=== PATIENT | male | born 1945 | race Two or more races ===

== ENCOUNTER 2024-12-19 12:20 | Inpatient (IN) | payer MEDICARE, MEDICAID, SELFPAY ==
[2024-12-19] VITALS (8 sets, daily range): BP systolic 81–155; BP diastolic 65–82; PULSE 51–63; RESP 15–98; TEMP 36.1–37.1; O2SAT 94–97; BMI 25.1
--- NOTE | 2024-12-19 12:52 | PC.NURSE ---
pt to ct
--- NOTE | 2024-12-19 12:54 | PC.NURSE ---
1222: DURING TRIAGE AND SON PASSING PHONE BACK AND FORTH, UNABLE TO GIVE STRAIGHT FORTH ANSWERS, COMPUTERIZED MILL RECORDER ASKED TO CLARIFY MULTIPLE TIMES. PT ABLE TO HOLD ID CARD W/BOTH HANDS AND MOVE BOTH HANDS
--- NOTE | 2024-12-19 12:58 | EKG_ITS ---
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
--- NOTE | 2024-12-19 12:58 | EDNOTE_ITS ---
Neuro Symptoms Deficit-RME/HPI General Chief Complaint: Hand/Wrist Problems Stated Complaint: B/L HAND NUMBNESS Time Seen by Provider: 12/19/24 12:59 Arrival date/time: 12/19/24 12:20 RME / HPI RME / HPI Narrative: 79 year old male with history of hypertension and previous cardiac procedure performed 5 years ago in [place] per , presents to the ED for evaluation of left upper arm pain and weakness beginning at 9:00 AM today. Patient reports he was sitting, bent forward, tying his grandchild's shoe when shortly after symptoms began. Initially beginning with pain to the left shoulder that radiates down the arm and followed by weakness. States he is unable to lift the arm above his shoulder. 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 Denies any history of similar sym ptoms. mentioned since the cardiac procedure performed 5 years ago patient no longer takes medication for hypertension. This mornign she measured his blood pressure shortly after symptoms began that read 170/92. She gave patient 1 Aspirin and Nebivolol/Hydrochlorithiazide. Related Data Home Medications ?Medication ?Instructions ?Recorded ?Confirmed amlodipine 5 mg-valsartan 160 1 tab PO QDAY 12/19/24 0 12/19/24 mg-hydrochlorothiazide 12.5 mg tablet aspirin 81 mg capsule 81 mg PO QDAY 12/19/2412/19 telmisartan 40 mg tablet (Micardis) 40 mg PO QDAY 12/0212/19/24 Allergies Allergy/AdvReac Type Severity Reaction Status Date / Time No Known Allergies Allergy Verified 12/19/24 12:29 Review of Systems Review of Systems Narrative Review of Systems: Gen: No fever, no chills, no weight loss EYES: No discharge, no visual changes, no pain HEENT: No ear pain, no congestion, no sore throat PULM: no shortness of breath, no cough, no congestion CV: No chest pain, no dyspnea on exertion, no palpitations, no chest tightness GI: No nausea, no vomiting, no diarrhea, no pain, no constipation : No frequency, no urgency,? no dysuria Musc/skel: No joint pain, no back pain, +left shoulder pain that extends down the arm Skin: No rash, no ecchymosis, no lesions Psyc: No hallucinations, no depression Heme/Lymph: No easy bleeding or bruising tendencies Neuro: +LUE weakness, no headache Past Medical History Social History SMOKING STATUS: Never smoker ED Exam Narrative Physical exam: GENERAL APPEARANCE: AxOx4, no obvious distress, nontoxic appearing HEENT: NC, AT. MMM. EOMI, clear conjunctiva, oropharynx clear. NECK: Supple without lymphadenopathy. No stiffness or restricted ROM. HEART: Normal rate and regular rhythm, normal S1/S1, no m/r/g LUNGS: CTAB, moving air well. No crackles or wheezes are heard. ABDOMEN: Soft, nontender, nondistended with good bowel sounds heard. BACK: No midline C/T/L spine pain or deformity, No CVAT, no obvious deformity. EXTREMITIES: Without cyanosis, clubbing or edema. MUSCULOSKELETAL: FROM of all major joints, no chest tenderness, reproducible pain over bilateral trapezius. NEUROLOGICAL: Alert and oriented. CN not formally tested but appear grossly intact. 0/10 strength at his triceps and extensors of the hand, unable to assess retail wireless associate strength of the left hand, no pronator drift. Skin: Warm and dry without any rash. Course Quality Measures Suspected type of Stroke: TIA Tenecteplase given: Reason(s) TPA not given: Outside the time window not given stroke Orders Category Date Time Status Bedside Blood Glucose NOW Care 12/19/24 12:58 Active Operations Research Director NOW Care 12/19/24 12:58 Active Continuous Pulse Oximetry NOW Care 12/19/24 12:58 Completed EKG (ED ONLY) *Do not use* NOW Care 12/19/24 12:58 Completed In and Out Catheter NEEDED Care 12/19/24 12:58 Active Insert IV NOW Care 12/19/24 12:58 Active MRI Screening NOW Care 12/19/24 13:33 Active NIH Stroke Scale now Care 12/19/24 12:58 Active NPO NOW Care 12/19/24 12:58 Active Neuro Check Q15MIN Care 12/19/24 12:58 Completed Nurse Swallow Screen x1 Care 12/19/24 12:58 Active Consult to Neurology / Tele-Neurology Routine Cons 12/19/24 12:[address] angio stroke protocol Stat Exams 12/19/24 12:[address] stroke protocol Stat Exams 12/19/24 12:58 Completed EKG (ED Only) Stat Exams 12/19/24 12:58 Draft MR cervical spine wo/w con Stat Exams 12/20/24 Completed MR stroke protocol Stat Exams 12/20/24 Completed CBC Stat Lab 12/19/24 12:48 Completed Comprehensive Metabolic Panel Stat Lab 12/19/24 12:48 Completed Magnesium Stat Lab 12/19/24 12:48 Completed Partial Thromboplastin Time Stat Lab 12/19/24 12:48 Completed Prothrombin Time with INR Stat Lab 12/19/24 12:48 Completed Troponin I Stat Lab 12/19/24 12:48 Completed Ondansetron Inj [Zofran Inj] Med 12/19/24 12:57 Active 4 mg IV Q4HR PRN Oxygen Delivery NOW RT 12/19/24 12:58 Completed Vital Signs Vital signs: Vital Signs Temperature 98.0 F 12/19/24 12:36 Pulse Rate 58 L 12/19/24 12:36 Respiratory Rate 17 12/19/24 12:36 Blood Pressure 155/82 H 12/19/24 12:36 Pulse Oximetry (%) 96 12/19/24 12:36 Pulse ox is 96% on room air which is adequate. Procedures -ED EKG Interpretation #1: Date of EK12/19/24 Time of EK:04 Rate: 53 Interpretation: Interpreted by me Additional EKG comment: Bradycardic sinus rhythm, HR 53 , normal axis, normal interval, no acute ST or T-wave changes, no STEMI. Neuro Symptoms / Deficit MDM Narrative MDM Narrative:: Jennifer Arevalo am scribing for and in the presence of Dr. Diane. 1800: Care signed out to Dr. Penn. Past medical, surgical, social and family history reviewed. Vitals and home medications reviewed. Results and treatment plan discussed. They will assume the care of the patient at this time and will follow the patient, pending admission. Patient data External records reviewed:: [facility] previous records Clinical information provided by:: patient and spouse ( adds to HPI) Social determinants that could affect healthcare access:: none Patient has the following chronic illnesses:: Hx of hypertension How is presenting disease/condition affected by chronic disease/condition?: exacerbated by Evaluation data The following diagnostics were reviewed and interpreted by me:: lab results, radiology exam(s) and EKG tracing(s) (see interpretation under the procedures tab) Lab and/or radiology exams considered but not ordered:: None Interpretation Summary: Ordering Physician: Davin Diane MD Date of Service: 12/19/24 Procedure(s): CT stroke protocol Accession Number(s): [id number] cc: Davin Diane MD; Eddy Treviño MD~ Examination: CT brain head without contrast. 2-D sagittal coronal reconstructions Date and time of exam:December 19, 2024 1300 hours INDICATIONS: Stroke alert, sudden onset right-sided body weakness today CTDI: vol (mGy):46.7 DLP: (mGycm):930 Technique: Multiple CT axial sections of the brain have been obtained, 5 mm slice thickness. Contrast has not been administered. 2-D sagittal, coronal reconstructions have been obtained Low dose protocols were performed. One or more of the following dose reduction techniques were used; automated exposure control, adjustment of the mA and/or KV according to patient size, use of iterative reconstruction technique. Findings: No significant ventricular enlargement. Intra-axial or extra-axial hemorrhage density is not seen. No mass effect or midline shift Basal cisterns are not remarkable. Fourth ventricle is midline. Cranial vault intact. Impression: Negative for acute hemorrhage, mass effect or midline shift Dictated By:Eddy Treviño MD Signed By:<Electronically signed by Eddy Treviño MD in [place]>12/19/24 1305 Ordering Physician: Davin Diane MD Date of Service: 12/19/24 Procedure(s): CT angio stroke protocol Accession Number(s): [id number] cc: Davin Diane MD; Eddy Treviño MD~ Examination: CTA carotids with intravenous contrast CTA brain, head with intravenous contrast. 2-D sagittal, coronal reconstructions. 3-D reconstructions. Exam date and time: December 19, 2024 1305 hours INDICATIONS: Stroke alert, onset right-sided body weakness today CTDI: vol (mGy) 20.5 DLP: (mGycm) 145 Technique: Multiple CTA axial brain, head carotid images post intravenous contrast injection 75 cc, [id number]. 2-D sagittal, coronal reconstructions. 3-D reconstructions, 3-D post processing including vascular maximum intensity projection images. Low dose protocols were performed. One or more of the following dose reduction techniques were used; automated exposure control, adjustment of the mA and/or KV according to patient size, use of iterative reconstruction technique. Findings: No significant common carotid carotid bifurcation or internal carotid artery stenoses Minimally dominant left vertebral artery with no critical stenoses No cerebral large vessel arterial occlusions, thrombus, dissection or cerebral aneurysm IMPRESSION: No significant neck arterial stenoses No cerebral large vessel arterial occlusions or thrombus Dictated By:Eddy Treviño MD Signed By:<Electronically signed by Eddy Treviño MD in [place]>12/19/24 1337 Medications / Prescriptions Medications or Prescriptions considered but not ordered:: None Medication administrations:: Medication Administration History Acetaminophen (Acetaminophen 325 Mg Tablet) 650 mg PO Q6H PRN PRN Reason: Pain (1-3) & Fever >100.4 Stop: 01/18/25 17:17 Aspirin (Aspirin Ec 81 Mg Tabec) 81 mg PO QDAY [facility] Stop: 01/19/25 08:59 Last Admin: 12/20/24 08:35 Dose: 81 mg Documented By: ANITA Atorvastatin Calcium (Atorvastatin Calcium 20 Mg Tablet) 80 mg PO HS WENCESLAO Stop: 01/18/25 20:59 Last Admin: 12/19/24 20:25 Dose: 80 mg Documented By: Heparin Sodium (Porcine) (Heparin Sod Inj 5000 Unit/Ml Vial) 5,000 unit SC Q12HR WENCESLAO Stop: 01/02/25 20:59 Last Admin: 12/20/24 08:36 Dose: 5,000 unit Documented By: ANITA Co-signed By: Admin: 12/19/24 20:25 Dose: 5,000 unit Documented By: Co-signed By: MICHAEL Ondansetron HCl (Ondansetron Inj 2 Mg/Ml Inj 2 Ml) 4 mg IV Q4HR PRN PRN Reason: NAUSEA OR VOMITING Stop: 01/18/25 12:56 Sennosides (Senna Tablet) 2 tab PO BID PRN; Protocol PRN Reason: CONSTIPATION Stop: 01/18/25 17:17 Discontinued Medications Heparin Sodium (Porcine) (Heparin Sod Inj 5000 Unit/Ml Vial) 5,000 unit SC Q8HR WENCESLAO Stop: 01/02/25 21:59 Lactated Ringer's (Lactated Ringers) 1,000 mls @ 70 mls/hr IV .[id number] WENCESLAO Stop: 12/20/24 09:18 Last Admin: 12/19/24 20:26 Dose: 70 mls/hr Documented By: Sodium Chloride (Ns) 1,000 mls @ 999 mls/hr IV .Q1H1M ONE Stop: 12/20/24 11:52 Last Admin: 12/20/24 09:45 Dose: 999 mls/hr Documented By: ANITA See above Consultations Consultation(s) initiated? (list below): Yes Consultation #1 (Physician, Specialty, Details): I spoke with teleneurologist. States at this time is not a stroke and not a tpa candidate. Consider MR of cervical spine. Time: 14:19 Diagnosis Neuro Differential Diagnosis: subarachnoid hemorrhage, peripheral neuropathy, cerebrovascular accident and transient cerebral ischemia Most likely diagnosis given after review of the tests above:: Cervical radiculopathy, Peripheral neuropathy Admission Indicated Admission indicated?: indicated Admission Request Was there a request for admission?: Yes Admission Attestation Admission request attestation: Discussed case with [] from Hospitalist service regarding admission. Discussed patients ED course, exam findings, labs, and radiology results. The Hospitalist [agrees,declines] to accept the patient for admission. Disposition Plan Disposition Plan: Admit Critical Care Time Critical Care Time Critical Care Time: Yes Total Critical Care Time (min.): 35 Attestation: The high probability of sudden, clinically significant deterioration in the patient?s condition required the highest level of my preparedness to intervene urgently. The services I provided to this patient were to treat and/or prevent clinically significant deterioration. Services included the following: chart data review, reviewing nursing notes and/or old charts, documentation time, clinical science consultant collaboration regarding findings and treatment options, medication orders and management, direct patient care, vital sign assessments and ordering, interpreting and reviewing diagnostic studies and lab tests. Aggregate critical care time includes only time during which I was engaged in work directly related to the patient?s care, as described above, whether at bedside or elsewhere in the Emergency Department. It did not include time spent performing other reported procedures or the services of residents, students, nurses or physician assistants. Discharge Plan Plan Patient Disposition: Admit Acute Care w/in Hospital Problem List Clinical Impression: Cervical radiculopathy, Peripheral neuropathy
[2024-12-19 13:13] LABS: Basophils % (Auto) 0 % (0-2.5); Eosinophils % (Auto) 0 % (0-10); Hematocrit 49.6 % (41.0-53.0); Hemoglobin 16.8 g/dL (13.5-16.0); Immature Granulocytes % (Auto) 0 % (0-0); Immature Granulocytes Auto 0.02 Thou/mm3 (0.00-0.00); Lymphocytes # (Auto) 1.5 Thou/mm3 (1.0-4.8); Lymphocytes % (Auto) 21 % (10-50); Mean Corpuscular HGB Conc 33.9 g/dl (31.0-37.0); Mean Corpuscular Hemoglobin 31.6 pg (25.0-35.0); Mean Corpuscular Volume 93 fL (80-100); Monocytes # (Auto) 0.4 Thou/mm3 (0.0-0.8); Monocytes % (Auto) 6 % (0-12); Neutrophils # (Auto) 5.1 Thou/mm3 (1.8-7.7); Neutrophils % (Auto) 72 % (37-80); Nucleated Red Blood Cell % 0 /100 WBC (0); Platelet Count 264 Thou/mm3 (140-440); RDW Standard Deviation 42.1 fL (35.1-43.9); Red Blood Count 5.32 Miln/mm3 (4.50-5.90); White Blood Count 7.1 Thou/mm3 (3.8-10.6)
[2024-12-19 13:28] LABS: Partial Thromboplastin Time 26.3 Seconds (22.0-36.0); Prothrombin Time 10.8 Seconds (9.0-12.2)
[2024-12-19 13:33] LABS: Alanine Aminotransferase 32 U/L (10-49); Albumin, Serum 4.5 gm/dL (3.4-4.8); Albumin/Globulin Ratio 1.6 (1.2-2.2); Alkaline Phosphatase 62 U/L (46-116); Anion Gap 6 (7-16); Aspartate Amino Transferase 24 U/L (0-34); BUN/Creatinine Ratio 11 Ratio (12-20); Bilirubin,Total 0.5 mg/dL (0.3-1.2); Blood Urea Nitrogen 10 mg/dL (9-23); Calcium 9.4 mg/dL (8.3-10.6); Calcium (Corrected) 9.4 mg/dL (8.5-10.1); Carbon Dioxide 29.9 mMol/L (20.0-31.0); Chloride 106 mMol/L (98-107); Creatinine (Component) 0.9 mg/dL (0.6-1.3); Globulin 2.8 gm/dL (2.3-3.5); Glucose 119 mg/dL (74-106); Magnesium 2.3 mg/dL (1.6-2.6); Osmolality,Calculated 283 (275-295); Sodium 142 mMol/L (136-145); Total Protein 7.3 gm/dL (5.7-8.2); Troponin I < 0.020 ng/mL (0.0-0.045); eGFR > 60 See Note
--- NOTE | 2024-12-19 14:54 | ESCONSULT_ITS ---
Tele Neuro Consultation Consultation Date 12/19/24 Most Recent Vital Signs Last Vital Signs Temp 98.0 F 12/19/24 12:36 Pulse 63 12/19/24 13:52 Resp 17 12/19/24 12:36 BP 155/82 H 12/19/24 12:36 Pulse Ox 96 12/19/24 12:36 Laboratory-Coagulation Panel PT 10.8 Seconds (9.0-12.2) 12/19/24 12:48 INR 1.0 (0.9-1.3) 12/19/24 12:48 APTT 26.3 Seconds (22.0-36.0) 12/19/24 12:48 Consultation Narrative [facility] Patient Name:???Zack Lovell Date of :???1945 Identification Number:??? 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 Symptoms concerning for either a cervical myelopathy or radiculopathy given predominance of pain. Plan to admit for MRI Brain and Cervical spine with and without contrast. Our recommendations are outlined below. Recommendations: ? Stroke/Telemetry Floor ? Neuro Checks ? Bedside Swallow Eval ? DVT Prophylaxis ? IV Fluids, Normal Saline ? Head of Bed 30 Degrees ? Euglycemia and Avoid Hyperthermia (PRN Acetaminophen) Sign Out: ? Discussed with Emergency Department Provider Advanced Imaging:CTA Head and Neck Completed. LVO:No Patient in not a candidate for GODWIN Metrics: Last Known Well: 12/19/2024 09:00:00 Dispatch Time: 12/19/2024 12:53:59 Arrival Time: 12/19/2024 12:20:00 Initial Response Time: 12/19/2024 12:58:48Symptoms: RUE and LUE weakness with Right shoulder pain. Initial patient interaction: 12/19/2024 13:03:13 NIHSS Assessment Completed: 12/19/2024 13:10:08Patient is not a candidate for Thrombolytic. Thrombolytic Medical Decision: 12/19/2024 13:10:12Patient was not deemed candidate for Thrombolytic because of following reasons: other diagnosis suspected Shoulder pain with bilateral, progressive symptom onset worse on the Right. CT head showed no acute hemorrhage or acute core infarct. Primary Provider Notified of Diagnostic Impression and Management Plan on: 12/19/2024 14:15:45 History of Present Illness:Patient is a 79 year old Male. Patient was brought by private transportation with symptoms of RUE and LUE weakness with Right shoulder pain. Patient presenting from home. Reports that he was last completely normal at ~0900 this morning when he started to develop Right sided shoulder pain that started to progress into the Right arm as well as weakness. Patient now also feeling some weakness in the Left arm as well, but no pain. ? Past Medical History: ?Hypertension ?There is no history of Stroke Medications: No Anticoagulant use? No Antiplatelet use Reviewed EMR for current medications Allergies:? Reviewed Social History: Drug Use: No Family History: There is no family history of premature cerebrovascular disease pertinent to this consultation ROS : 14 Points Review of Systems was performed and was negative except mentioned in HPI. Past Surgical History: There Is No Surgical History Contributory To Today?s Visit ? Examination: BP(137/76),?Pulse(58), 1A: Level of Consciousness - Alert; keenly responsive?+ 0 1B: Ask Month and Age - Both Questions Right?+ 0 1C: Blink Eyes & Squeeze Hands - Performs Both Tasks?+ 0 2: Test Horizontal Extraocular Movements - Normal?+ 0 3: Test Visual Foster - No Visual Loss?+ 0 4: Test Facial Palsy (Use Grimace if Obtunded) - Normal symmetry?+ 0 5A: Test Left Arm Motor Drift - No Drift for 10 Seconds?+ 0 5B: Test Right Arm Motor Drift - Drift, but doesn't hit bed?+ 1 6A: Test Left Leg Motor Drift - No Drift for 5 Seconds?+ 0 6B: Test Right Leg Motor Drift - No Drift for 5 Seconds?+ 0 7: Test Limb Ataxia (FNF/Heel-Chris) - No Ataxia?+ 0 8: Test Sensation - Mild-Moderate Loss: Less Sharp/More Dull?+ 1 9: Test Language/Aphasia - Normal; No aphasia?+ 0 10: Test Dysarthria - Normal?+ 0 11: Test Extinction/Inattention - No abnormality?+ 0 NIHSS Score:?2 Pre-Morbid Modified Jefferson Davis Scale:0 Points = No symptoms at all Spoke with :?Dr. Diane This consult was conducted in real time using interactive audio and video technology. Patient was informed of the technology being used for this visit and agreed to proceed. Patient located in hospital and provider located at home/office setting. Patient is being evaluated for possible acute neurologic impairment and high probability of imminent or life-threatening deterioration. I spent total of 30 minutes providing care to this patient, including time for face to face visit via telemedicine, review of medical records, imaging studies and discussion of findings with providers, the patient and/or family. Dr Bal Arango [facility] For Inpatient follow-up with [facility] physician please call [facility] at . As we are not an outpatient service for any post hospital discharge needs please contact the hospital for assistance. If you have any questions for the [facility] physicians or need to reconsult for clinical or diagnostic changes please contact us via [facility] at .
--- NOTE | 2024-12-19 17:28 | ESHP_ITS ---
<Statement entered by Froylan Burrell MD - 12/20/24 07:37> I discussed with and supervised the intern architect physician involved in the care of this patient. Patient assessment and plan was discussed with entire medicine team, including my attending. I agree with the assessment and plan as documented by intern architect doctor. Patient care was discussed with my attending physician Dr. Rusty Burrell, PGY-2 Documentation for date of: 12/19/24 HPI History of Present Illness Chief complaint: Bilateral arm weakness History of present illness: Mr. Lovell is a 79-year-old male with past medical history of coronary artery disease status post stent placement 5 years ago in [place] and hypertension who presented to [facility] emergency department on 12/19/2024 with a chief complaint of bilateral upper extremity weakness. Patient complained of both right and left upper extremity weakness with right shoulder pain, reported that he was completely normal around 9 AM this morning, when he started to develop right shoulder pain that started to progress into the right arm as well as weakness and eventually started having some weakness in left arm. Patient reports he was sitting, bent forward, tying his grandson's child's shoelaces after which his symptoms began. Patient is unable to lift his arm above his shoulder. Patient has never had similar episodes in the past. Patient otherwise denies any chest pain, shortness of breath, headache, dizziness, palpitations, abdominal pain, nausea or vomiting. Patient has no other complaints. Of note patient recently arrived from [place], reports that flew in and reached on Sunday. ED Course: ED Vitals: On presentation in ED blood pressure 155/82, heart rate 58, respirate rate 17, temp 98.0, O2 sat 96 on room air ED Labs: ED labs significant for hemoglobin 16.8, glucose 119, labs otherwise unremarkable ED Imaging:CT scan of the head in ED is negative and CTA head and neck is negative as well EKG shows sinus bradycardia ED Treatment:Teleneurology was consulted in the emergency department, recommended admission per teleneurology patient possibly has underlying cervical myelopathy or radiculopathy. Recommends MRI brain and cervical spine with and without contrast, telemetry monitoring, neurochecks, bedside swallow eval, DVT prophylaxis, IV fluids normal saline, head of bed elevation at 30 degrees, euglycemia and avoid hyperthermia. Review of Systems Review of Systems Narrative Review of Systems: ROS: -CONSTITUTIONAL: Denies weight loss, fever and chills. -HEENT: Denies changes in vision and hearing. -RESPIRATORY: Denies SOB and cough. -CV: Denies palpitations and Chest Pain. -GI: Denies abdominal pain, nausea, vomiting,constipation and diarrhea. -: Denies dysuria and urinary frequency. -MSK: Denies myalgia and joint pain. -SKIN: Denies rash and pruritus. -NEUROLOGICAL: Denies headache and syncope. Positive for bilateral upper extremity weakness. -PSYCHIATRIC: Denies recent changes in mood. Denies anxiety and depression. Past Medical History Past Medical History Comments PMH COMMENT: PMH: Positive for coronary artery disease, hypertension PSHx: Cardiac catheterization about 5 years ago, possible 1 stent placed Allergies: No known allergies Social history: -Smoking: Denies -Alcohol Use: Denies -Illicit Drug Use: Denies -Occupation: Retired -Martial Status: at bedside Family History: Denies family history of cardiac disorders. Exam Vital Signs Temp Pulse Resp BP Pulse Ox O2 Del Method 98.2 F 53 L 15 99/65 95 Room Air 12/19/24 16:00 12/19/24 16:00 12/19/24 16:00 12/19/24 16:00 12/19/24 16:00 12/19/24 16:00 Narrative Exam Physical Exam General: Awake and in no acute distress. Conversational and non-toxic appearing. HEENT: Normocephalic, atraumatic, mucous membranes moist. Heart: Regular rate and rhythm, no murmurs. Lungs: Clear to auscultation with no wheezing or crackles. Abdomen: Soft, nondistended, nontender, positive bowel sounds. ?No guarding or rebound tenderness. Neurologic: Alert and oriented x3, significant bilateral upper extremity weakness, right greater than left, right upper extremity strength 2/5, left upper extremity strength 3/5. Extremities: No edema. Skin: No rash or ecchymoses. Results: Labs 12/20/24 04:46 12/20/24 04:46 Labs: Short CBC 12/19/24 Range/Units 12:48 WBC 7.1 (3.8-10.6) Thou/mm3 Hgb 16.8 H (13.5-16.0) g/dL Hct 49.6 (41.0-53.0) % Plt Count 264 (140-440) Thou/mm3 BMP 12/19/24 12:48 Sodium 142 Potassium 4.0 Chloride 106 Carbon Dioxide 29.9 BUN 10 Creatinine 0.9 Glucose 119 H Calcium 9.4 Cardiac Enzymes 12/19/24 Range/Units 12:48 Troponin I < 0.020 (0.0-0.045) ng/mL Liver Function 12/19/24 Range/Units 12:48 Total Bilirubin 0.5 (0.3-1.2) mg/dL AST 24 (0-34) U/L ALT 32 (10-49) U/L Alkaline Phosphatase 62 (46-116) U/L Albumin 4.5 (3.4-4.8) gm/dL Quality Measures Quality Measures stroke Suspected type of Stroke: Unknown at this time Last known well (date): 12/19/24 Last known well (time): 09:00 Tenecteplase given: Reason(s) Tenecteplase not given: Stroke severity too mild (non-disabling) not given Rehab services: PT evaluation ordered and Speech Language Pathology eval ordered VTE Prophylaxis: pharmaceutical Antithrombotic by day 2:: ordered Statin ordered: >75 y/o moderate or high intensity dose Anticoagulation ordered for A-fib or flutter (current or hx): not indicated Advance care planning discussed with:: patient Medications Home Medications and Allergies Home Medications ?Medication ?Instructions ?Recorded ?Confirmed ?Type amlodipine 5 mg-valsartan 160 1 tab PO QDAY 12/19/24 0 12/19/24 History mg-hydrochlorothiazide 12.5 mg tablet aspirin 81 mg capsule 81 mg PO QDAY 12/19/2412/19 History telmisartan 40 mg tablet (Micardis) 40 mg PO QDAY 12/0212/19/24 History Allergies Allergy/AdvReac Type Severity Reaction Status Date / Time No Known Allergies Allergy Verified 12/19/24 12:29 Visit Medications Acetaminophen (Acetaminophen 325 Mg Tablet) 650 mg PO Q6H PRN PRN Reason: Pain (1-3) & Fever >100.4 Stop: 01/18/25 17:17 Aspirin (Aspirin Ec 81 Mg Tabec) 81 mg PO QDAY WENCESLAO Stop: 01/19/25 08:59 Atorvastatin Calcium (Atorvastatin Calcium 20 Mg Tablet) 80 mg PO HS WENCESLAO Stop: 01/18/25 20:59 Heparin Sodium (Porcine) (Heparin Sod Inj 5000 Unit/Ml Vial) 5,000 unit SC Q8HR WENCESLAO Stop: 01/02/25 21:59 Ondansetron HCl (Ondansetron Inj 2 Mg/Ml Inj 2 Ml) 4 mg IV Q4HR PRN PRN Reason: NAUSEA OR VOMITING Stop: 01/18/25 12:56 Sennosides (Senna Tablet) 2 tab PO BID PRN; Protocol PRN Reason: CONSTIPATION Stop: 01/18/25 17:17 Assessment & Plan Plan Assessment and plan: Summary: Mr. Lovell is a 79-year-old male with past medical history of coronary artery disease status post stent placement 5 years ago in [place] and hypertension who presented to [facility] emergency department on 12/19/2024 with a chief complaint of bilateral upper extremity weakness. Patient admitted for CVA workup. #CVA workup #Bilateral upper extremity weakness Patient complained of progressive right and left upper extremity weakness, started as right shoulder pain, last known well time 9 AM. On physical exam significant weakness noted right upper extremity strength 2/5, left upper extremity 3/5. No prior history of CVA. Does have history of coronary artery disease status post stent placement and hypertension Teleneurology consulted in the emergency department,CT scan of the head in ED is negative and CTA head and neck is negative as well EKG shows sinus bradycardia High suspicion of cervical myelopathy or radiculopathy. Plan: - MRI/MRA brain ordered - MRI cervical spine with and without contrast to assess for myelopathy versus radiculopathy per neurology recommendations - Aspirin 81 mg daily - Atorvastatin 80 mg at bedtime - Neurology consulted, appreciate recommendations - Head of bed elevated - IV NS 1 L maintenance fluid - Avoid hyperthermia, maintain euglycemia - Telemetry monitoring - Referral to physical therapy - Referral to speech therapy - N.p.o. pending bedside swallow screen - Follow lipid panel, TSH and A1c in a.m. #Asymptomatic sinus bradycardia Patient denies any dizziness, syncope/presyncopal event and palpitation. Heart rate noted to be 53 on EKG, shows sinus bradycardia Patient is on Nebivolol, hydrochlorothiazide at home and aspirin 100 mg at home -Telemetry monitoring -Hold beta-blockers #Hypertension Patient is on Nebivolol, hydrochlorothiazide at home and aspirin 100 mg at home. Reports using telmisartan 40 mg as needed for high blood pressure. Blood pressure soft, will continue #Coronary artery disease, status post stent placement, by history Patient on aspirin 100 mg at home, started on aspirin 81 mg. #Polycythemia Hemoglobin 16.8 on presentation, patient will be given IV fluids, denies smoking - Possible in setting of dehydration, follow CBC in a.m. DVT prophylaxis: Heparin every 12 hours GI prophylaxis: Not indicated Diet: N.p.o., pending bedside swallow screen Lines: Peripheral IV Code status: Full code Case discussed with Attending Dr. Ojeda and Dr. Burrell PGY2. Subha Hoffman PGY1 Disclaimer: This note was dictated by speech recognition. Minor errors in tank maker wood may be present due to voice recognition software. Attending Provider Attestation/Addendum I have discussed and was present for the essential components of the history, physical examination, diagnosis, and treatment plan with the resident. I agree with the patient's care as documented by the resident and amended herein by me. Ezio Ojeda DO. Although this document has been carefully reviewed, there may still be some phonetic and other typographical errors. These errors are purely grammatical due to imperfections in the software program and should not be construed in any way to compromise the substance of the patient's medical care during this visit.
[2024-12-19] MEDS: HEPARIN SOD INJ 5000 UNIT/ML VIAL SC (20:25)
[2024-12-19] MEDS: ATORVASTATIN CALCIUM 20 MG TABLET 80 MG PO (20:25)
[2024-12-19] MEDS: RINGERS LACTATED 1000 ML 1,000 ML 70 ML IV (20:26)
--- NOTE | 2024-12-19 21:39 | PC.NURSE ---
Per Charge Nurse Ghulam walters for to spend the night as she is pts caregiver
[2024-12-20] VITALS (9 sets, daily range): BP systolic 83–119; BP diastolic 53–74; PULSE 54–79; RESP 14–96; TEMP 35.4–36.8; O2SAT 94–98; BMI 24.5
--- NOTE | 2024-12-20 | XR_ITS ---
Examinations: MRI Brain without intravenous contrast. MRA brain without intravenous contrast. MRA carotids without intravenous contrast 3-D vascular reconstructions Date and time of exam: December 20, 2024 1136 hrs. Indication: Weakness in the upper extremities, sudden onset right-sided body weakness stroke alert yesterday 04/20/2025 Technique: Multiple axial and sagittal images of the brain have been obtained MRA brain carotid images without contrast obtained, including 3-D postprocessing, vascular maximum intensity projection images Findings: Sellaturcica is not enlarged. The optic chiasm and infundibular stalk are not remarkable. Prepontine and interpeduncular cisterns are not enlarged. No localized enlargement of the medulla or jackson. Fourth ventricle and cerebellar tonsils normal in position. Subacute hemorrhage is not seen. Fourth ventricle is midline. Mass in the cerebellopontine angle region is not evident. 7th and 8th nerve complexes exhibits symmetry. Globes are symmetrical with no retro-orbital mass. Increased white matter signal mild Diffusion-weighted images demonstrate no focus of restricted diffusion Mass-effect upon the ventricular system is not identified. MRA carotid images no significant stenoses. MRA brain images no large vessel occlusions Impression: Negative for acute hemorrhage mass effect or midline shift No acute infarct No significant carotid stenoses No cerebral large vessel arterial occlusions
--- NOTE | 2024-12-20 | XR_ITS ---
Examination: MRI cervical spine, without intravenous contrast. MRI cervical spine , with intravenous contrast. Exam date and time: December 20, 2024 12 0 6:00 PM Indications: Neck pain radiating to the shoulders today Technique: Multiple axial, sagittal and coronal images of the cervical spine have been obtained with the Siemens high-resolution 1.5 Stephanie MRI scanner. Images obtained included T2 weighted fat suppressed sagittal sections, TR 3500, TE 46, T2 weighted coronal fat suppressed images, TR 3050, TE 84, T2-weighted transverse fat suppressed images, TR 30-60, TE 63, proton density transverse images, TR 4720, TE 46, and T1 weighted coronal images, TR 560, TE 13. Axial, sagittal and coronal images are obtained post intravenous injection 13 cc gadolinium. Findings: Adequate alignment cervical radiculitis No cervical fracture Moderate to advanced disc narrowing C3-C4, C4-C5 Diffuse cervical disc desiccation Significant increased signal in the cervical cord on the precontrast images,. Postcontrast images with minimal enhancement inferior C2 end axillary sinus No abnormal enhancing epidural or cervical cord enhancement C2-C3 no disc protrusion C3-C4 advanced bilateral neural foraminal stenosis C4-C5 advanced bilateral neural foraminal stenosis C5-C6 moderate right neural foraminal stenosis C6-C7 no disc protrusion C7-T1 no disc protrusion Impression: Moderate to advanced degenerative disc disease C3-C4, C4-C5 Bilateral neural foraminal stenosis as above Increased signal in the cervical cord, consider gliosis
[2024-12-20 05:45] LABS: Basophils % (Auto) 0 % (0-2.5); Eosinophils % (Auto) 0 % (0-10); Hematocrit 46.7 % (41.0-53.0); Hemoglobin 16.2 g/dL (13.5-16.0); Immature Granulocytes % (Auto) 0 % (0-0); Immature Granulocytes Auto 0.02 Thou/mm3 (0.00-0.00); Lymphocytes # (Auto) 1.6 Thou/mm3 (1.0-4.8); Lymphocytes % (Auto) 19 % (10-50); Mean Corpuscular HGB Conc 34.7 g/dl (31.0-37.0); Mean Corpuscular Hemoglobin 31.5 pg (25.0-35.0); Mean Corpuscular Volume 91 fL (80-100); Monocytes # (Auto) 0.6 Thou/mm3 (0.0-0.8); Monocytes % (Auto) 7 % (0-12); Neutrophils # (Auto) 6.3 Thou/mm3 (1.8-7.7); Neutrophils % (Auto) 74 % (37-80); Nucleated Red Blood Cell % 0 /100 WBC (0); Platelet Count 238 Thou/mm3 (140-440); RDW Standard Deviation 40.5 fL (35.1-43.9); Red Blood Count 5.15 Miln/mm3 (4.50-5.90); White Blood Count 8.5 Thou/mm3 (3.8-10.6)
[2024-12-20 05:49] LABS: Glucose Estimated Average 131 mg/dL (80-131); Hemoglobin A1C 6.2 % Hgb (4.8-6.0)
[2024-12-20 05:54] LABS: Partial Thromboplastin Time 26.6 Seconds (22.0-36.0); Prothrombin Time 11.2 Seconds (9.0-12.2)
[2024-12-20 06:03] LABS: Alanine Aminotransferase 27 U/L (10-49); Albumin, Serum 4.2 gm/dL (3.4-4.8); Albumin/Globulin Ratio 1.8 (1.2-2.2); Alkaline Phosphatase 56 U/L (46-116); Anion Gap 8 (7-16); Aspartate Amino Transferase 21 U/L (0-34); BUN/Creatinine Ratio 14 Ratio (12-20); Bilirubin,Total 0.6 mg/dL (0.3-1.2); Blood Urea Nitrogen 11 mg/dL (9-23); Calcium 9.3 mg/dL (8.3-10.6); Calcium (Corrected) 9.3 mg/dL (8.5-10.1); Carbon Dioxide 24.5 mMol/L (20.0-31.0); Cardiac Risk Estimate 4.7 RATIO (4.0-6.7); Chloride 111 mMol/L (98-107); Cholesterol 184 mg/dL (132-200); Creatinine (Component) 0.8 mg/dL (0.6-1.3); Estimated Creatinine Clearance 67.3 mL/min (>60); Globulin 2.4 gm/dL (2.3-3.5); Glucose 105 mg/dL (74-106); HDL Cholesterol 39 mg/dL (40-60); LDL Cholesterol,Calculated 119 mg/dL (0-130); Magnesium 2.2 mg/dL (1.6-2.6); Osmolality,Calculated 284 (275-295); Phosphorous 3.2 mg/dL (2.4-5.1); Sodium 143 mMol/L (136-145); Thyroid Stimulating Hormone 2.91 uIU/mL (0.55-4.78); Total Protein 6.6 gm/dL (5.7-8.2); Triglycerides 130 mg/dL (30-150); eGFR > 60 See Note
[2024-12-20] MEDS: ASPIRIN EC 81 MG TABEC PO (08:35)
[2024-12-20] MEDS: HEPARIN SOD INJ 5000 UNIT/ML VIAL SC ×2 (08:36→20:18)
--- NOTE | 2024-12-20 09:37 | EKG_ITS ---
[facility] Test Date: 2024-12-20 Pat Name: LOY ALEGRIA [facility] Gender[facility] [employer] Agent: JESSICA : [id number] Requested By: Rich Fontaine Order Number: [id number] Reading MD: Rich Fontaine Measurements Intervals [place] Rate: 59 P: 90 NV: 210 QRS: 23 QRSD: 109 T: 28 QT: 419 QTc: 416 Interpretive Statements SINUS BRADYCARDIA WITH FIRST DEGREE AV BLOCK INCOMPLETE RIGHT BUNDLE BRANCH BLOCK Compared to ECG 12/19/2024 15:04:24 Incomplete right bundle-branch block now present /store/S0/[id number].pdf
[2024-12-20] MEDS: SODIUM CHLORIDE 0.9% 1000 ML 1,000 ML 999 ML IV (09:45)
--- NOTE | 2024-12-20 09:51 | PC.NURSE ---
912-took patient to mri , mri kristin called stating patient does not look good., field support technician yasir hidalgoshireen patient back, patient is very diaphoretic, cold clammy respiration, pale, bld sugar- 125, bp 83/63/ rapid response was called at this time.
--- NOTE | 2024-12-20 11:07 | PD.IMCONS ---
HPI Data of Consult Requesting Physician: Juan Pablo Ojeda DO Primary Care Provider: Physician No Primary/Family Consult Narrative History of present illness: this is a is 79-year-old male with past medical history of coronary artery disease status post stent placement 5 years ago in [place] and hypertension Patient seen in the emergency room with upper extremity weakness right shoulder pain Patient recently traveled from [place] Patient is currently being evaluated for bradycardia EKG shows heart rate in the 50s Patient is currently having an MRI of the cervical spine Patient reportedly dropped her blood pressure while in the MRI room Became somewhat diaphoretic cardiology consultation requested So far EKG does not show any acute ST-T wave changes troponins are essentially negative cc:: cc: Juan Pablo Ojeda DO Meds Home Medications and Allergies Home Medications ?Medication ?Instructions ?Recorded ?Confirmed ?Type amlodipine 5 mg-valsartan 160 1 tab PO QDAY 12/19/24 12/19/24 History mg-hydrochlorothiazide 12.5 mg tablet aspirin 81 mg capsule 81 mg PO QDAY 12/19/24 12/19/24 History telmisartan 40 mg tablet (Micardis) 40 mg PO QDAY 12/19/24 12/19/24 History Allergies Allergy/AdvReac Type Severity Reaction Status Date / Time No Known Allergies Allergy Verified 12/19/24 12:29 Exam Vital Signs Temp Pulse Resp BP Pulse Ox O2 Del Method 95.7 F L 57 L 20 83/63 L 98 Room Air 12/20/24 09:31 12/20/24 09:31 12/20/24 09:31 12/20/24 09:31 12/20/24 09:31 12/20/24 08:00 Routine HEENT Exam Head: Present normocephalic and atraumatic Eye: Present EOMI and PERRL ENT: Present mucous membranes moist Routine Neck Exam Neck: Present supple and trachea midline Routine Respiratory Exam Respiratory: Present chest non-tender, lungs clear, normal breath sounds and no resp distress Routine Cardiovascular Exam Cardiovascular: Present RRR Routine Abdominal Exam Abdominal: Present soft and normoactive bowel sounds Routine Extremities Exam Extremities: Present full ROM Routine Skin Exam Skin: Present intact, dry and warm Routine Neurological Exam Neurological: Present alert, oriented X3 and CN II-XII intact Routine Psychiatric Exam Psychiatric: Present normal affect and normal thought process Results Labs 12/20/24 04:46 12/20/24 04:46 Labs: Short CBC 12/19/24 12/20/24 Range/Units 12:48 04:46 WBC 7.1 8.5 (3.8-10.6) Thou/mm3 Hgb 16.8 H 16.2 H (13.5-16.0) g/dL Hct 49.6 46.7 (41.0-53.0) % Plt Count 264 238 (140-440) Thou/mm3 BMP 12/19/24 12/20/24 12:48 04:46 Sodium 142 143 Potassium 4.0 4.0 Chloride 106 111 H Carbon Dioxide 29.9 24.5 BUN 10 11 Creatinine 0.9 0.8 Glucose 119 H 105 Calcium 9.4 9.3 Cardiac Enzymes 12/19/24 Range/Units 12:48 Troponin I < 0.020 (0.0-0.045) ng/mL Liver Function 12/19/24 12/20/24 Range/Units 12:48 04:46 Total Bilirubin 0.5 0.6 (0.3-1.2) mg/dL AST 24 21 (0-34) U/L ALT 32 27 (10-49) U/L Alkaline Phosphatase 62 56 (46-116) U/L Albumin 4.5 4.2 (3.4-4.8) gm/dL Assessment and Plan Assessment and plan (1) Peripheral neuropathy: Status: Acute (2) Hypotension: Status: Acute (3) Bradycardia: Status: Acute Additional Assessment & Plan Additional Plan: We will give him IV fluids continue monitoring blood pressure EKG does not have any acute ST-T wave changes Hold off on antihypertensive We will obtain echocardiographic exam and follow-up
--- NOTE | 2024-12-20 13:35 | ESPR_ITS ---
Documentation for date of: 12/20/24 Subjective Subjective Interval history: In morning rapid response was called as patient was found to be diaphoretic and having episode of near syncope. Blood pressure was found to have MAP in the low 60s. Patient was given 1 L NS bolus, EKG indicated first-degree block with sinus bradycardia. MRI negative for acute changes. Cervical spine MRI indicated degenerative disc disease with stenosis of C3-C5. Patient is pending echocardiogram and cardiac evaluation. Anticipating discharge within 24 to 48 hours. Exam Vital Signs Temp Pulse Resp BP Pulse Ox O2 Del Method 95.7 F L 57 L 20 83/63 L 98 Room Air 12/20/24 09:31 12/20/24 09:31 12/20/24 09:31 12/20/24 09:31 12/20/24 09:12/20/24 08:00 Narrative Exam General: Awake and in no acute distress. Conversational and non-toxic appearing. HEENT: Normocephalic, atraumatic, mucous membranes moist. Heart: Regular rate and rhythm, no murmurs. Lungs: Clear to auscultation with no wheezing or crackles. Abdomen: Soft, nondistended, nontender, positive bowel sounds. ?No guarding or rebound tenderness. Neurologic: Alert and oriented x3, significant bilateral upper extremity weakness, right greater than left, right upper extremity strength 2/5, left upper extremity strength 3/5. Extremities: No edema. Objective Labs 12/20/24 04:46 12/20/24 04:46 Labs: Laboratory Results - last 24 hr 12/20/24 04:46 WBC 8.5 RBC 5.15 Hgb 16.2 H Hct 46.7 MCV 91 MCH 31.5 MCHC 34.7 RDW Std Deviation 40.5 Plt Count 238 Neut % (Auto) 74 Lymph % (Auto) 19 [place] % (Auto) 7 Eos % (Auto) 0 Baso % (Auto) 0 Neut # (Auto) 6.3 Lymph # (Auto) 1.6 [place] # (Auto) 0.6 Eos # (Auto) 0.0 Baso # (Auto) 0.0 Immature Gran # (Auto) 0.02 H Absolute Nucleated RBC 0.00 Immature Gran % 0 Nucleated RBC % 0 PT 11.2 INR 1.0 APTT 26.6 Sodium 143 Potassium 4.0 Chloride 111 H Carbon Dioxide 24.5 Anion Gap 8 BUN 11 Creatinine 0.8 Estim Creat Clear Calc 67.3 eGFR > 60 BUN/Creatinine Ratio [address] Glu mg/dL 131 Hemoglobin A1c 6.2 H Calculated Osmolality 284 Calcium 9.3 Corrected Calcium 9.3 Phosphorus 3.2 Magnesium 2.2 Total Bilirubin 0.6 AST 21 ALT 27 Alkaline Phosphatase 56 Total Protein 6.6 Albumin 4.2 Globulin 2.4 Albumin/Globulin Ratio 1.8 Triglycerides 130 Cholesterol 184 LDL Cholesterol, Calc 119 HDL Cholesterol 39 L Cholesterol/HDL Ratio 4.7 TSH 2.91 Quality Measures Quality Measures stroke Suspected type of Stroke: Unknown at this time Last known well (date): 12/19/24 Last known well (time): 09:00 Tenecteplase given: Reason(s) Tenecteplase not given: Stroke severity too mild (non-disabling) not given Rehab services: PT evaluation ordered VTE Prophylaxis: pharmaceutical Antithrombotic by day 2:: not indicated (describe) Statin ordered: >75 y/o moderate or high intensity dose Anticoagulation ordered for A-fib or flutter (current or hx): ordered Advance care planning discussed with:: patient Assessment & Plan Assessment Current Active Medications: Generic Name Dose Route Start Last Admin Trade Name Freq PRN Reason Stop Dose Admin Acetaminophen 650 mg 12/19/24 17:18 Acetaminophen 325 Mg Tablet PO 01/18/25 17:17 Q6H PRN Pain (1-3) & Fever >100.4 Aspirin 81 mg 12/20/24 09:00 12/20/24 08:35 Aspirin Ec 81 Mg Tabec PO 01/19/25 08:59 81 mg QDAY WENCESLAO Administration Atorvastatin Calcium 80 mg 12/19/24 21:00 12/19/24 20:25 Atorvastatin Calcium 20 Mg Tablet PO 01/18/25 20:59 80 mg HS WENCESLAO Administration Heparin Sodium (Porcine) 5,000 unit 12/19/24 21:00 12/20/24 08:36 Heparin Sod Inj 5000 Unit/Ml Vial SC 01/02/25 20:59 5,000 unit Q12HR WENCESLAO Administration Ondansetron HCl 4 mg 12/19/24 12:57 Ondansetron Inj 2 Mg/Ml Inj 2 Ml IV 01/18/25 12:56 Q4HR PRN NAUSEA OR VOMITING Sennosides 2 tab 12/19/24 17:18 Senna Tablet PO 01/18/25 17:17 BID PRN CONSTIPATION Protocol Plan Mr. Lovell is a 79-year-old male with past medical history of coronary artery disease status post stent placement 5 years ago in [place] and hypertension who presented to [facility] emergency department on 12/19/2024 with a chief complaint of bilateral upper extremity weakness. Patient admitted for CVA workup. #Asymptomatic sinus bradycardia Patient denies any dizziness, syncope/presyncopal event and palpitation. Heart rate noted to be 53 on EKG, shows sinus bradycardia Patient is on Nebivolol, hydrochlorothiazide at home and aspirin 100 mg at home Plan: -Cardiology Dr. Parkinson consulted, recommendations are greatly appreciated -Echocardiogram ordered -Orthostatic vitals ordered -Hold off beta-blockers and other hypertensive meds #CVA workup #Bilateral upper extremity weakness Patient complained of progressive right and left upper extremity weakness, started as right shoulder pain, last known well time 9 AM. On physical exam significant weakness noted right upper extremity strength 2/5, left upper extremity 3/5. No prior history of CVA. Does have history of coronary artery disease status post stent placement and hypertension Teleneurology consulted in the emergency department,CT scan of the head in ED is negative and CTA head and neck is negative as well EKG shows sinus bradycardia High suspicion of cervical myelopathy or radiculopathy. Brain MRI = negative for infarct Cervical spine MRI = Moderate to advanced degenerative disc disease C3-C4, C4- C5. Bilateral neural foraminal stenosis as above A1c 6.2%, TSH normal Plan: - Aspirin 81 mg daily - Atorvastatin 80 mg at bedtime - Neurology consulted, appreciate recommendations - Head of bed elevated - Avoid hyperthermia, maintain euglycemia - Telemetry monitoring - Referral to physical therapy #Hypertension Patient is on Nebivolol, hydrochlorothiazide at home and aspirin 100 mg at home. Reports using telmisartan 40 mg as needed for high blood pressure. Blood pressure soft Plan: -Hold off BP meds as BP WNL #Coronary artery disease, status post stent placement, by history Patient on aspirin 100 mg at home Plan: -Continue aspirin 81 mg. #Polycythemia Hemoglobin 16.8 on presentation, patient will be given IV fluids, denies smoking - Possible in setting of dehydration, follow CBC in a.m. Health Maintenance Dispo: Patient admitted for CVA workup, pending echocardiogram and neuro recs Diet: Low carb consistent DVT/PPx: Heparin GI ppx: Protonix Lines: PIV Code Status: Full code This patient care was discussed with my attending Dr. Rusty Burrell MD PGY-2 Disclaimer: Minor errors in computing systems mechanic may be present since this note was dictated by speech recognition software.
[2024-12-20] MEDS: ATORVASTATIN CALCIUM 20 MG TABLET 80 MG PO (20:16)
[2024-12-21] VITALS (9 sets, daily range): BP systolic 97–105; BP diastolic 58–69; PULSE 57–81; RESP 15–98; TEMP 36.2–37.2; O2SAT 94–97; BMI 24.8; BMI 14.0
[2024-12-21 06:10] LABS: Basophils % (Auto) 0 % (0-2.5); Eosinophils # (Auto) 0.2 Thou/mm3 (0.0-0.5); Eosinophils % (Auto) 3 % (0-10); Hematocrit 45.2 % (41.0-53.0); Hemoglobin 15.5 g/dL (13.5-16.0); Immature Granulocytes % (Auto) 0 % (0-0); Immature Granulocytes Auto 0.02 Thou/mm3 (0.00-0.00); Lymphocytes # (Auto) 1.6 Thou/mm3 (1.0-4.8); Lymphocytes % (Auto) 20 % (10-50); Mean Corpuscular HGB Conc 34.3 g/dl (31.0-37.0); Mean Corpuscular Hemoglobin 31.6 pg (25.0-35.0); Mean Corpuscular Volume 92 fL (80-100); Monocytes # (Auto) 0.4 Thou/mm3 (0.0-0.8); Monocytes % (Auto) 5 % (0-12); Neutrophils # (Auto) 5.7 Thou/mm3 (1.8-7.7); Neutrophils % (Auto) 72 % (37-80); Nucleated Red Blood Cell % 0 /100 WBC (0); Platelet Count 235 Thou/mm3 (140-440); RDW Standard Deviation 42.1 fL (35.1-43.9); Red Blood Count 4.91 Miln/mm3 (4.50-5.90); White Blood Count 7.9 Thou/mm3 (3.8-10.6)
[2024-12-21 06:56] LABS: Alanine Aminotransferase 24 U/L (10-49); Albumin, Serum 4.2 gm/dL (3.4-4.8); Albumin/Globulin Ratio 1.8 (1.2-2.2); Alkaline Phosphatase 55 U/L (46-116); Anion Gap 9 (7-16); Aspartate Amino Transferase 18 U/L (0-34); BUN/Creatinine Ratio 18 Ratio (12-20); Bilirubin,Total 0.8 mg/dL (0.3-1.2); Blood Urea Nitrogen 14 mg/dL (9-23); Calcium 9.2 mg/dL (8.3-10.6); Calcium (Corrected) 9.2 mg/dL (8.5-10.1); Carbon Dioxide 23.5 mMol/L (20.0-31.0); Chloride 111 mMol/L (98-107); Creatinine (Component) 0.8 mg/dL (0.6-1.3); Estimated Creatinine Clearance 67.3 mL/min (>60); Globulin 2.4 gm/dL (2.3-3.5); Glucose 109 mg/dL (74-106); Magnesium 2.2 mg/dL (1.6-2.6); Osmolality,Calculated 286 (275-295); Potassium 3.7 mMol/L (3.4-5.1); Sodium 143 mMol/L (136-145); Total Protein 6.6 gm/dL (5.7-8.2); eGFR > 60 See Note
[2024-12-21] MEDS: ASPIRIN EC 81 MG TABEC PO (08:45)
[2024-12-21] MEDS: HEPARIN SOD INJ 5000 UNIT/ML VIAL SC ×2 (08:45→20:20)
--- NOTE | 2024-12-21 09:53 | PC.SS ---
This is 79-year-old, , male who presented to the ED due to suffering from hand numbness. Patient appeared alert and oriented to self, place and situation. Patient reported that he resides at home with his son and , Angie. Prior to admission, patient was independent with all ADLs, no DME use. Patient assigned his , Angie as his emergency medical decision maker. Patient's PCP is in [place]. When medically clear, patient will return home, no transportation will be needed.
--- NOTE | 2024-12-21 14:15 | PD.RESPRO ---
Documentation for date of: 12/21/24 Subjective Subjective Interval history: No significant overnight events. Patient underwent PT evaluation, recommendation was made for home with PT health. and other family members questions answered and updated at bedside. Patient still pending echocardiogram, anticipating discharge greater than 24 to 48 hours. Exam Vital Signs Temp Pulse Resp BP Pulse Ox O2 Del Method 97.5 F 60 22 H 100/58 L 96 Room Air 12/21/24 12:00 12/21/24 12:00 12/21/24 12:00 12/21/24 12:00 12/21/24 12:00 12/21/24 12:00 Narrative Exam General: Awake and in no acute distress. Conversational and non-toxic appearing. HEENT: Normocephalic, atraumatic, mucous membranes moist. Heart: Regular rate and rhythm, no murmurs. Lungs: Clear to auscultation with no wheezing or crackles. Abdomen: Soft, nondistended, nontender, positive bowel sounds. ?No guarding or rebound tenderness. Neurologic: Alert and oriented x3, significant bilateral upper extremity weakness, right greater than left, right upper extremity strength 2/5, left upper extremity strength 3/5. Extremities: No edema. Objective Labs 12/22/24 05:36 12/22/24 05:36 Labs: Laboratory Results - last 24 hr 12/21/24 05:24 WBC 7.9 RBC 4.91 Hgb 15.5 Hct 45.2 MCV 92 MCH 31.6 MCHC 34.3 RDW Std Deviation 42.1 Plt Count 235 Neut % (Auto) 72 Lymph % (Auto) 20 [place] % (Auto) 5 Eos % (Auto) 3 Baso % (Auto) 0 Neut # (Auto) 5.7 Lymph # (Auto) 1.6 [place] # (Auto) 0.4 Eos # (Auto) 0.2 Baso # (Auto) 0.0 Immature Gran # (Auto) 0.02 H Absolute Nucleated RBC 0.00 Immature Gran % 0 Nucleated RBC % 0 Sodium 143 Potassium 3.7 Chloride 111 H Carbon Dioxide 23.5 Anion Gap 9 BUN 14 Creatinine 0.8 Estim Creat Clear Calc 67.3 eGFR > 60 BUN/Creatinine Ratio 18 Glucose 109 H Calculated Osmolality 286 Calcium 9.2 Corrected Calcium 9.2 Phosphorus 3.0 Magnesium 2.2 Total Bilirubin 0.8 AST 18 ALT 24 Alkaline Phosphatase 55 Total Protein 6.6 Albumin 4.2 Globulin 2.4 Albumin/Globulin Ratio 1.8 Quality Measures Quality Measures stroke Suspected type of Stroke: TIA Last known well (date): 12/19/24 Last known well (time): 09:00 Tenecteplase given: Reason(s) Tenecteplase not given: Outside the time window not given Rehab services: PT evaluation ordered VTE Prophylaxis: pharmaceutical Antithrombotic by day 2:: not indicated (describe) Statin ordered: >75 y/o moderate or high intensity dose Anticoagulation ordered for A-fib or flutter (current or hx): not indicated Advance care planning discussed with:: patient Assessment & Plan Assessment Current Active Medications: Generic Name Dose Route Start Last Admin Trade Name Freq PRN Reason Stop Dose Admin Acetaminophen 650 mg 12/19/24 17:18 Acetaminophen 325 Mg Tablet PO 01/18/25 17:17 Q6H PRN Pain (1-3) & Fever >100.4 Aspirin 81 mg 12/20/24 09:00 12/21/24 08:45 Aspirin Ec 81 Mg Tabec PO 01/19/25 08:59 81 mg QDAY WENCESLAO Administration Atorvastatin Calcium 80 mg 12/19/24 21:00 12/20/24 20:16 Atorvastatin Calcium 20 Mg Tablet PO 01/18/25 20:59 80 mg HS WENCESLAO Administration Heparin Sodium (Porcine) 5,000 unit 12/19/24 21:00 12/21/24 08:45 Heparin Sod Inj 5000 Unit/Ml Vial SC 01/02/25 20:59 5,000 unit Q12HR WENCESLAO Administration Ondansetron HCl 4 mg 12/19/24 12:57 Ondansetron Inj 2 Mg/Ml Inj 2 Ml IV 01/18/25 12:56 Q4HR PRN NAUSEA OR VOMITING Sennosides 2 tab 12/19/24 17:18 Senna Tablet PO 01/18/25 17:17 BID PRN CONSTIPATION Protocol Plan Mr. Lovell is a 79-year-old male with past medical history of coronary artery disease status post stent placement 5 years ago in [place] and hypertension who presented to [facility] emergency department on 12/19/2024 with a chief complaint of bilateral upper extremity weakness. Patient admitted for CVA workup. #Asymptomatic sinus bradycardia Patient denies any dizziness, syncope/presyncopal event and palpitation. Heart rate noted to be 53 on EKG, shows sinus bradycardia Patient is on Nebivolol, hydrochlorothiazide at home and aspirin 100 mg at home Plan: -Cardiology Dr. Parkinson consulted, recommendations are greatly appreciated -Echocardiogram pending -Orthostatic vitals positive -Hold off beta-blockers and other hypertensive meds #CVA workup #Bilateral upper extremity weakness Patient complained of progressive right and left upper extremity weakness, started as right shoulder pain, last known well time 9 AM. On physical exam significant weakness noted right upper extremity strength 2/5, left upper extremity 3/5. No prior history of CVA. Does have history of coronary artery disease status post stent placement and hypertension Teleneurology consulted in the emergency department,CT scan of the head in ED is negative and CTA head and neck is negative as well EKG shows sinus bradycardia High suspicion of cervical myelopathy or radiculopathy. Brain MRI = negative for infarct Cervical spine MRI = Moderate to advanced degenerative disc disease C3-C4, C4-C5. Bilateral neural foraminal stenosis as above A1c 6.2%, TSH normal Plan: - Aspirin 81 mg daily - Atorvastatin 80 mg at bedtime - Neurology consulted, appreciate recommendations - Head of bed elevated - Avoid hyperthermia, maintain euglycemia - Telemetry monitoring - Referral to physical therapy #Hypertension Patient is on Nebivolol, hydrochlorothiazide at home and aspirin 100 mg at home. Reports using telmisartan 40 mg as needed for high blood pressure. Blood pressure soft Plan: -Hold off BP meds as BP WNL #Coronary artery disease, status post stent placement, by history Patient on aspirin 100 mg at home Plan: -Continue aspirin 81 mg. #Polycythemia Hemoglobin 16.8 on presentation, patient will be given IV fluids, denies smoking - Possible in setting of dehydration, follow CBC in a.m. Health Maintenance Dispo: Patient admitted for CVA workup, pending echocardiogram Diet: Low carb consistent DVT/PPx: Heparin GI ppx: Protonix Lines: PIV Code Status: Full code This patient care was discussed with my attending Dr. Rusty Burrell MD PGY-2 Disclaimer: Minor errors in patient care representative may be present since this note was dictated by speech recognition software. Attending Provider Attestation/Addendum I have discussed and was present for the essential components of the history, physical examination, diagnosis, and treatment plan with the resident. I agree with the patient's care as documented by the resident and amended herein by me. Ezio Ojeda DO. Patient seen and evaluated this AM. Discharge pending echocardiogram, hopefully will be performed tomorrow. Home health with physical therapy ordered. Although this document has been carefully reviewed, there may still be some phonetic and other typographical errors. These errors are purely grammatical due to imperfections in the software program and should not be construed in any way to compromise the substance of the patient's medical care during this visit.
[2024-12-21] MEDS: ATORVASTATIN CALCIUM 20 MG TABLET 80 MG PO (20:20)
--- NOTE | 2024-12-21 23:56 | PD.VPROG1 ---
Telemedicine visit statement This visit was conducted with the use of interactive audio and video telecommunications system that permits real time communication between the patient and the provider. Patient's verbal consent for virtual visit was obtained on 12/21/24 at 2356. Documentation for date of: 12/21/24 Subjective Subjective Interval history: Patient was seen in telemetry virtually. I continued to have upper extremity weakness more distally involving the right more than the left. Denies any neck pain radiating down the arms and has restricted range of motion involving the right shoulder from a arthritis. Denies any weakness in the lower extremities or bowel or bladder control problems. He denies any paresthesias. Virtual exam Vital Signs Temp Pulse Resp BP Pulse Ox O2 Del Method 99.0 F 80 15 105/69 94 L Room Air 12/21/24 20:00 12/21/24 20:00 12/21/24 20:00 12/21/24 20:00 12/21/24 20:00 12/21/24 20:00 Objective Labs 12/21/24 05:24 12/21/24 05:24 Labs: Laboratory Results - last 24 hr 12/21/24 05:24 WBC 7.9 RBC 4.91 Hgb 15.5 Hct 45.2 MCV 92 MCH 31.6 MCHC 34.3 RDW Std Deviation 42.1 Plt Count 235 Neut % (Auto) 72 Lymph % (Auto) 20 [place] % (Auto) 5 Eos % (Auto) 3 Baso % (Auto) 0 Neut # (Auto) 5.7 Lymph # (Auto) 1.6 [place] # (Auto) 0.4 Eos # (Auto) 0.2 Baso # (Auto) 0.0 Immature Gran # (Auto) 0.02 H Absolute Nucleated RBC 0.00 Immature Gran % 0 Nucleated RBC % 0 Sodium 143 Potassium 3.7 Chloride 111 H Carbon Dioxide 23.5 Anion Gap 9 BUN 14 Creatinine 0.8 Estim Creat Clear Calc 67.3 eGFR > 60 BUN/Creatinine Ratio 18 Glucose 109 H Calculated Osmolality 286 Calcium 9.2 Corrected Calcium 9.2 Phosphorus 3.0 Magnesium 2.2 Total Bilirubin 0.8 AST 18 ALT 24 Alkaline Phosphatase 55 Total Protein 6.6 Albumin 4.2 Globulin 2.4 Albumin/Globulin Ratio 1.8 Assessment & Plan Problem List (1) Cervical radiculopathy: Status: Acute Assessment and plan: Patient would need EMG nerve conduction study of both upper extremities to evaluate further as an outpatient. Advised him provide awaiting more than 20 pounds and avoid chiropractic ventilation. Continue with physical therapy (2) Peripheral neuropathy: Status: Acute Assessment and plan: Consider workup and appropriate management after the EMG nerve conduction study to look for secondary causes (3) Bradycardia: Status: Resolved (4) Hypotension: Status: Resolved
[2024-12-22] VITALS: BP 120/69; PULSE 77; PULSE 83; RESP 21; TEMP 36.9; O2SAT 96
[2024-12-22 04:00] VITALS: BP 108/74; PULSE 68; PULSE 70; RESP 19; TEMP 36.3; O2SAT 97
[2024-12-22 06:00] VITALS: BMI 25.1
[2024-12-22 06:34] LABS: Basophils % (Auto) 0 % (0-2.5); Eosinophils # (Auto) 0.3 Thou/mm3 (0.0-0.5); Eosinophils % (Auto) 2 % (0-10); Hematocrit 45.2 % (41.0-53.0); Hemoglobin 15.5 g/dL (13.5-16.0); Immature Granulocytes % (Auto) 0 % (0-0); Immature Granulocytes Auto 0.05 Thou/mm3 (0.00-0.00); Lymphocytes # (Auto) 1.4 Thou/mm3 (1.0-4.8); Lymphocytes % (Auto) 11 % (10-50); Mean Corpuscular HGB Conc 34.3 g/dl (31.0-37.0); Mean Corpuscular Hemoglobin 30.9 pg (25.0-35.0); Mean Corpuscular Volume 90 fL (80-100); Monocytes # (Auto) 0.7 Thou/mm3 (0.0-0.8); Monocytes % (Auto) 6 % (0-12); Neutrophils # (Auto) 10.6 Thou/mm3 (1.8-7.7); Neutrophils % (Auto) 81 % (37-80); Nucleated Red Blood Cell % 0 /100 WBC (0); Platelet Count 239 Thou/mm3 (140-440); RDW Standard Deviation 40.7 fL (35.1-43.9); Red Blood Count 5.02 Miln/mm3 (4.50-5.90); White Blood Count 13.1 Thou/mm3 (3.8-10.6)
[2024-12-22 06:52] LABS: Alanine Aminotransferase 26 U/L (10-49); Albumin, Serum 4.2 gm/dL (3.4-4.8); Albumin/Globulin Ratio 1.7 (1.2-2.2); Alkaline Phosphatase 54 U/L (46-116); Anion Gap 11 (7-16); Aspartate Amino Transferase 18 U/L (0-34); BUN/Creatinine Ratio 28 Ratio (12-20); Bilirubin,Total 0.6 mg/dL (0.3-1.2); Blood Urea Nitrogen 25 mg/dL (9-23); Calcium 9.4 mg/dL (8.3-10.6); Calcium (Corrected) 9.4 mg/dL (8.5-10.1); Carbon Dioxide 21.1 mMol/L (20.0-31.0); Chloride 107 mMol/L (98-107); Creatinine (Component) 0.9 mg/dL (0.6-1.3); Estimated Creatinine Clearance 59.8 mL/min (>60); Globulin 2.5 gm/dL (2.3-3.5); Glucose 145 mg/dL (74-106); Magnesium 2.1 mg/dL (1.6-2.6); Osmolality,Calculated 284 (275-295); Phosphorous 4.5 mg/dL (2.4-5.1); Potassium 3.8 mMol/L (3.4-5.1); Sodium 139 mMol/L (136-145); Total Protein 6.7 gm/dL (5.7-8.2); eGFR > 60 See Note
[2024-12-22 07:45] VITALS: PULSE 75; RESP 18; RESP 98
[2024-12-22 08:00] VITALS: BP 129/79; PULSE 61; PULSE 84; RESP 20; TEMP 36.2; O2SAT 98
[2024-12-22] MEDS: ASPIRIN EC 81 MG TABEC PO (08:32)
[2024-12-22] MEDS: HEPARIN SOD INJ 5000 UNIT/ML VIAL SC (08:32)
[2024-12-22] MEDS: SENNA TABLET 2 TAB PO (08:36)
--- NOTE | 2024-12-22 10:14 | PC.SS ---
Follow up note: ECHO pending. Pt will return home with HH upon d.c.
--- NOTE | 2024-12-22 10:53 | ECHO_ITS ---
Transthoracic Echo Report Ht (in): 65 Wt (lb): 151 Exam Location: Portable Status: Inpatient Insulation Power Unit Tender: MARISA Rushing^^^^ Indications: Procedure Performed: BP: / HR: 68 Technical Quality: Fair MEASUREMENTS (Male / Female) Normal Values 2D ECHO LV Diastolic Diameter PLAX 2.5 cm 4.2 - 5.9 / 3.9 - 5.3 cm LV Systolic Diameter PLAX 1.7 cm IVS Diastolic Thickness 1.0 cm 0.6 - 1.0 / 0.6 - 0.9 cm LVPW Diastolic Thickness 0.8 cm 0.6 - 1.0 / 0.6 - 0.9 cm LV Relative Wall Thickness 0.7 LVOT Diameter 1.5 cm Aortic Root Diameter 3.5 cm LA Systolic Diameter LX 2.5 cm 3.0 - 4.0 / 2.7 - 3.8 cm DOPPLER AV Peak Velocity 143.5 cm/s AV Peak Gradient 8.2 mmHg AV Mean Gradient 7.0 mmHg AV Velocity Time Integral 36.0 cm AI Peak Velocity 197.0 cm/s AI Peak Gradient 15.5 mmHg AI Pressure Half Time 765.0 ms LVOT Peak Velocity 124.0 cm/s LVOT Peak Gradient 6.2 mmHg LVOT Velocity Time Integral 28.4 cm LVOT Cardiac Index 1913.4 cm?/min?m? AV Area Cont Eq vti 1.4 cm? AV Area Cont Eq pk 1.5 cm? MV Area PHT 3.2 cm? Mitral E Point Velocity 52.5 cm/s Mitral A Point Velocity 70.8 cm/s Mitral E to A Ratio 0.7 LV E' Lateral Velocity 9.0 cm/s Mitral E to LV E' Lateral Ratio 5.8 LV E' Septal Velocity 7.8 cm/s Mitral E to LV E' Septal Ratio 6.7 TR Peak Velocity 278.0 cm/s TR Peak Gradient 30.9 mmHg PV Peak Velocity 110.0 cm/s PV Peak Gradient 4.8 mmHg RVOT Peak Velocity 51.7 cm/s FINDINGS Left Ventricle Normal left ventricular size, wall thickness, systolic function with no obvious regional wall motion abnormalities. There is grade I diastolic dysfunction of the left ventricle (impaired relaxation pattern). The left ventricular ejection fraction is normal, estimated at 60-65%. Right Ventricle The right ventricle is normal in size and systolic function. The estimated right ventricular systolic pressure, 33 mmHg. Left Atrium The left atrium is normal by two-dimensional, color flow and Doppler imaging with no structural abnormalities, no thrombus formation present. Right Atrium The right atrium is normal by two-dimensional imaging, color flow and Doppler imaging with no structural abnormalities, no thrombus formation present. Atrial Septum The interatrial septum is normal to color flow Doppler and agitated saline imaging. Aorta The aorta is normal by two-dimensional, color flow and Doppler interrogation. Mitral Valve Mild thickening of the mitral valve leaflets. Mild mitral regurgitation. Mild mitral annular calcification. Aortic Valve Aortic valve sclerosis. Diffuse calcification of the aortic valve. Trace to mild aortic valve regurgitation. Tricuspid Valve There is mild tricuspid valve regurgitation. Pulmonic Valve Trivial pulmonic valve regurgitation. Vessels The pulmonary artery appears normal. The inferior vena cava pulmonary and hepatic veins appear normal. Pericardium The pericardium is normal by two-dimensional imaging. There is no significant pericardial effusion. CONCLUSIONS indication: CVA bubble LV appears normal with EF 60-65%. Diastolic Dysfunction I. RV appears normal with RVSP 33 mmHg. IAS is normal to color flow Doppler and agitated saline imaging. Mild MR & MAC AOV sclerosis trace AI Mild TR Florian Parkinson (Electronically Signed) Final Date: 22 December 2024 16:42
[2024-12-22 12:00] VITALS: BP 116/66; PULSE 80; RESP 20; TEMP 36.4; O2SAT 98
--- NOTE | 2024-12-22 12:13 | PC.CC ---
Per Ute PRADHAN notes, patient's PCP is in [place]. Unable to establish HH if pt doesn't have PCP here. I called and spoke to Hamida PRADHAN, plan is to establish pt with [facility] for PCP. Then send referral to Sissy HOPKINS.
--- NOTE | 2024-12-22 12:54 | PC.SS ---
Walkers ?The diagnosis creates mobility limitation that significantly impairs ability to participate in the patients activities of daily living either in their entirety, or in a reasonable time frame. Also the patient is able to safely use the walker and the patient?s mobility is sufficiently resolved with the use of the walker and cane has been ruled out.?
--- NOTE | 2024-12-22 14:04 | PD.RESPRO ---
Documentation for date of: 12/22/24 Subjective Subjective Interval history: Patient seen and examined at bedside. No acute overnight events. Reports some improvement in weakness in his arm, has no new complaints. Will benefit from EMG nerve conduction study as an outpatient. Can continue aspirin and statin until follow-up. Exam Vital Signs Temp Pulse Resp BP Pulse Ox O2 Del Method 97.5 F 84 20 116/66 98 Room Air 12/22/24 12:00 12/22/24 08:00 12/22/24 12:00 12/22/24 12:00 12/22/24 12:00 12/22/24 12:00 Narrative Exam GENERAL: AAOX3 NEURO: Bilateral upper extremity weakness. Strength about 4/5 in LUE and 3/5 in RUE. No nystagumus, intention tremors. Sensation relatively intact HEENT: Moist mucosa. Eyes open, symmetrical, & clear CARDIO: No chest pain on palpation. Heart RRR, no obvious murmurs PULM: No noted coughing/dyspnea. Lungs CTA B/L GI: Abdomen soft, nondistended, no pain on palpation. 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 SKIN/MSK/EXT: No wounds/rashes/edema/amputations, no pain on palpation. Pedal pulses present B/L Objective Labs 12/22/24 05:36 12/22/24 05:36 Labs: Laboratory Results - last 24 hr 12/22/24 05:36 WBC 13.1 H D RBC 5.02 Hgb 15.5 Hct 45.2 MCV 90 MCH 30.9 MCHC 34.3 RDW Std Deviation 40.7 Plt Count 239 Neut % (Auto) 81 H Lymph % (Auto) 11 [place] % (Auto) 6 Eos % (Auto) 2 Baso % (Auto) 0 Neut # (Auto) 10.6 H Lymph # (Auto) 1.4 [place] # (Auto) 0.7 Eos # (Auto) 0.3 Baso # (Auto) 0.0 Immature Gran # (Auto) 0.05 H Absolute Nucleated RBC 0.00 Immature Gran % 0 Nucleated RBC % 0 Sodium 139 Potassium 3.8 Chloride 107 Carbon Dioxide 21.1 Anion Gap 11 BUN 25 H Creatinine 0.9 Estim Creat Clear Calc 59.8 L eGFR > 60 BUN/Creatinine Ratio 28 H Glucose 145 H Calculated Osmolality 284 Calcium 9.4 Corrected Calcium 9.4 Phosphorus 4.5 Magnesium 2.1 Total Bilirubin 0.6 AST 18 ALT 26 Alkaline Phosphatase 54 Total Protein 6.7 Albumin 4.2 Globulin 2.5 Albumin/Globulin Ratio 1.7 Quality Measures Quality Measures stroke Suspected type of Stroke: TIA Last known well (date): 12/19/24 Last known well (time): 09:00 Tenecteplase given: Reason(s) Tenecteplase not given: Outside the time window not given Rehab services: PT evaluation ordered and Speech Language Pathology eval ordered VTE Prophylaxis: mechanical Antithrombotic by day 2:: ordered Statin ordered: >75 y/o moderate or high intensity dose Anticoagulation ordered for A-fib or flutter (current or hx): not indicated Advance care planning discussed with:: other Assessment & Plan Assessment Current Active Medications: Generic Name Dose Route Start Last Admin Trade Name Freq PRN Reason Stop Dose Admin Acetaminophen 650 mg 12/19/24 17:18 Acetaminophen 325 Mg Tablet PO 01/18/25 17:17 Q6H PRN Pain (1-3) & Fever >100.4 Aspirin 81 mg 12/20/24 09:00 12/22/24 08:32 Aspirin Ec 81 Mg Tabec PO 01/19/25 08:59 81 mg QDAY WENCESLAO Administration Atorvastatin Calcium 80 mg 12/19/24 21:00 12/21/24 20:20 Atorvastatin Calcium 20 Mg Tablet PO 01/18/25 20:59 80 mg HS WENCESLAO Administration Heparin Sodium (Porcine) 5,000 unit 12/19/24 21:00 12/22/24 08:32 Heparin Sod Inj 5000 Unit/Ml Vial SC 01/02/25 20:59 5,000 unit Q12HR WENCESLAO Administration Ondansetron HCl 4 mg 12/19/24 12:57 Ondansetron Inj 2 Mg/Ml Inj 2 Ml IV 01/18/25 12:56 Q4HR PRN NAUSEA OR VOMITING Sennosides 2 tab 12/19/24 17:18 12/22/24 08:36 Senna Tablet PO 01/18/25 17:17 2 tab BID PRN Administration CONSTIPATION Protocol Plan Summary: The patient is a 79-year-old male with a past medical history of CAD status post stent placement and hypertension who presented to the ED on 12/19/2024 with complaints of bilateral upper extremity weakness. Admitted for CVA workup. #Bilateral upper extremity weakness #Cervical radiculopathy The patient presenting with bilateral upper extremity weakness that was first noticed about a day prior to presentation. He was unable to lift his arm above his shoulders, has had no similar present in the past and no other neurological deficits. Prior imaging that was done on admission, CT head and neck was negative. MRI brain also negative for acute infarct. MRI cervical spine showed moderate to advanced degenerative disc disease as well as bilateral neural foraminal stenosis. The patient was started on aspirin and statin and will benefit from outpatient EMG as well as nerve conduction study. Plan: - Continue aspirin - Upon discharge, will benefit from EMG as well as nerve conduction study EMG. #Asymptomatic sinus bradycardia #Hypertension #CAD status post stents #Polycythemia - Management per primary team Case was discussed with attending physician, Dr Brittney Oquendo MD PGY-1 Disclaimer: This note was dictated by speech recognition. Minor errors in p d driver may be present due to voice recognition software. Attending Provider Attestation/Addendum I personally have seen and examined the patient at the bedside and I agree with resident findings, assessment and plan of care. patient is stable for discharge home on aspirin, will do EMG nerve conduction study as an outpatient to evaluate for the severity of cervical spinal stenosis. Advised to avoid weight lifting more than 25 pounds and avoid chiropractic manipulation.
--- NOTE | 2024-12-22 14:17 | PC.SS ---
SS met with pt and son who state pt does not have preference for Home Health Services. Son states pt does not have walker at home and walker was recommended by PT. SS has sent DME order for walking using [employer]. SS has provided pt with [facility]. SS attempted to schedule pt an appointment at [facility] but they did not answer. SS has informed pt and son to walk into [facility] to follow up with resident physicians tomorrow at 11am. SS has informed transfer nurse, Jerry. Pt and son are requesting HH agency registered representative speak French.
--- NOTE | 2024-12-22 14:33 | ESDS_ITS ---
<Statement entered by Froylan Burrell MD - 12/23/24 08:04> I discussed with and supervised the internet ecommerce specialist physician involved in the care of this patient. Patient assessment and plan was discussed with entire medicine team, including my attending. I agree with the assessment and plan as documented by internet ecommerce specialist doctor. Patient care was discussed with my attending physician Dr. Rusty Burrell, PGY-2 Planned Discharge Date 12/22/24 DS: Providers Provider Date of admission: 12/19/24 17:18 Primary care physician: Physician Mae Primary/Family Admitting Provider: Juan Pablo Ojeda DO Attending Provider on Admission: Juan Pablo Ojeda DO Consults: 12/19/24 12:58 Consult to Neurology / Tele-Neurology Routine Comment: Consulting Provider: [facility] 12/19/24 17:26 Referral Physical Therapy Routine Comment: Physician Instructions: Referral Speech Therapy Routine Comment: 12/19/24 17:29 Consult to Neurology / Tele-Neurology Urgent Comment: CVA Workup Consulting Provider: Jeramie Lugo 12/20/24 09:48 Consult to Cardiology Stat Comment: bradycardia, hypotension, heart block Consulting Provider: Yulissa Parkinson Attending Provider on DC: Juan Pablo Ojeda DO Discharging Provider: Juan Pablo Ojeda DO Anticipated date of discharge: 12/22/24 DS: Diagnosis Problem List Completed Was Problem List Reviewed/Reconciled?: Yes Hospital Course Hospital Course Hospital course: Hospital course: Mr. Harmon is a 79-year-old male with past medical history of coronary artery disease status post stent placement 5 years ago in [place] and hypertension who presented to [facility] [place] emergency department on 12/19/2024 with a chief complaint of bilateral upper extremity weakness. Patient was admitted to hospital for CVA workup. On physical exam patient had significant weakness right upper extremity and left upper extremity medication patient was started on aspirin, neurology was consulted, MRI stroke protocol and MRI neck with and without contrast was ordered. Brain MRI was negative for any acute infarct while cervical spine MRI showed moderate to advanced degenerative disc disease C3-C4, C4-C5 and bilateral neural foraminal stenosis C3-C4, C4-C5, C5-C6. Neurology evaluated the patient and recommended EMG nerve conduction study of both upper extremities outpatient. Patient worked with physical therapy and physical therapy recommended discharging with home health. During hospitalization course, patient did have a near syncopal event, was found to have sinus bradycardia, cardiology was consulted, cardiology recommended discontinuing beta-blockers and antihypertensives. Patient condition improved with the progression of hospital course, further plan is to discharge patient home with home health, follow-up with primary care physician in a.m. patient will need outpatient cardiology care establishment, patient to follow-up with neurologist outpatient in 1 week and patient to hold all home medications other than aspirin. Patient is stable for discharge and patient responded well to hospital treatment. Discharge diagnosis: #CVA workup, ruled out stroke #Bilateral upper extremity weakness #Cervical radiculopathy #Hypertension #Coronary artery disease, status post stent placement, by history #Polycythemia, resolved #Sinus bradycardia, resolved #Dehydration, resolved #Orthostatic hypotension positive Time Spent with Patient Time attestation: Total time spent providing and/or coordinating discharge services: Time spent: Greater than 30 minutes Home Health Home Health Referral Orders: 12/21/24 13:28 Home Health Referral Routine Reason For Exam: debility Home-Bound The patient must either because of illness or injury, need the aid of supportive devices such as crutches, canes, wheelchairs, and walkers; the use of special transportation; or the assistance of another person in order to leave their place of residence; OR have a condition such that leaving his or her home is medically contraindicated. In addition, the patient also meets the following criteria: patient is normally unable to leave the home and leaving home requires considerable taxing effort. Addendum to Home Health Certification Practitioner's Certification: I certify that the patient has been under my care in the hospital and the care of attending physician (see below). We had a vqlj-vv-yhst encounter on (see date below). My clinical findings indicate that the patient is home bound per the above criteria and the Home Health Services noted in these orders are medically necessary. The primary reason for the doku-fo-wprk encounter is related to the fact that the patient requires home health services. Date Certifying Bzgy-cx-Xvnu Physician Encounter: 12/19/24 Physician's Name who will Assume Oversight for HH Services: Physician No Primary/Family SHINGLE SAWYER - Community Resources: No PT to Evaluate: Yes PT to evaluate and provide a treatmnet plan to increase patient's mobility and strength. Wound Care: No IV Therapy: No Discontinue PICC Line Once Treatment Complete: No RN Safety Evaluation: Yes RN to evaluate and create a plan of care that will produce positive outcomes. Palliative Treatment: No Palliative treatment and evaluate the need for hospice. Home Health Aide - Personal Care: No Home Health Aide to assist with any ADL's. Exam Vital Signs Temp Pulse Resp BP Pulse Ox O2 Del Method 97.5 F 84 20 116/66 98 Room Air 12/22/24 12:00 12/22/24 08:00 12/22/24 12:00 12/22/24 12:00 12/22/24 12:00 12/22/24 12:00 Narrative Exam General: Awake and in no acute distress. Conversational and non-toxic appearing. HEENT: Normocephalic, atraumatic, mucous membranes moist. Heart: Regular rate and rhythm, no murmurs. Lungs: Clear to auscultation with no wheezing or crackles. Abdomen: Soft, nondistended, nontender, positive bowel sounds. ?No guarding or rebound tenderness. Neurologic: Alert and oriented x3, significant bilateral upper extremity weakness, right greater than left, right upper extremity strength 3/5, left upper extremity strength 4/5. Extremities: No edema. Discharge Plan Plan Patient Disposition: Home w/HOME HEALTH Patient condition on transfer: Stable Prescriptions/Referrals Prescriptions/Med Rec: Continued aspirin 81 mg capsule 81 mg PO QDAY 30 Days Qty: 30 0RF Discontinued hkuoppvnfz-sqcrbhpup-jhljqkmqj 5-160-12.5 mg tablet 1 tab PO QDAY telmisartan [Micardis] 40 mg tablet 40 mg PO QDAY Referrals: Paulino Thomas MD [Resident] - No Primary/Family,Physician [Primary Care Provider] - Subha Hoffman MD [Resident] - Jeramie Lugo MD [Physician] - Patient/Caregiver Discharge Instructions Discharge Activity: walk with walker only and as per physical therapy Other Discharge Activity Instructions:: Continue aspirin 81 mg daily. Stop all of your other medications, stop the medications prescribed by your aerobics teacher from [place]. Follow-up with neurology outpatient in 1 week, you need EMG studies done, do not lift more than 20 pounds and avoid chiropractor. You need to establish care with cardiology, follow-up with aerobics teacher in 1 to 2 weeks Follow-up in [facility] tomorrow morning, you have an appointment at [address] Thomas. Call [phone] to make an appointment Address: [facility], [address], [address], [place], [address] Return to ED if symptoms return or worsen. Education Materials: Understanding Neck Problems, Back Basics: A Healthy Spine, ED Back Care Tips Print Language: Samoan Stand Alone Forms: makemoji Award Info., Patient Portal Info Letter Discharge Order Discharge Orders: Discharge (Routine); Ordered 12/22/24 Ordered By: Subha Hoffman Quality Discharge Quality Measures VTE prophylaxis MD Attestestation MD Attestation I have discussed and was present for the essential components of the discharge history, physical examination, diagnosis, and discharge treatment plan with the resident. I agree with the patient's discharge care as documented by the resident and amended herein by me. Ezio Ojeda, . The patient understood all discharge instructions, all questions were answered satisfactorily. The patient was instructed to return to the Emergency Department is symptoms worsened or persisted. Patient was stable, afebrile, tolerating p.o. intake and ambulatory times discharge. See resident note above for additional discharge details for follow-up. Patient will need cardiology and neurology follow-up. Although this document has been carefully reviewed, there may still be some phonetic and other typographical errors. These errors are purely grammatical due to imperfections in the software program and should not be construed in any way to compromise the substance of the patient's medical care during this visit.
[2024-12-22 16:00] VITALS: BP 135/73; PULSE 62; PULSE 71; RESP 21; TEMP 36.3; O2SAT 96
--- NOTE | 2024-12-23 19:22 | PC.CC ---
Referral sent to [facility], awaiting response, pending SOC date
--- NOTE | 2024-12-24 14:18 | PC.CC ---
Addendum entered by Paulo Hernández RN 12/24/24 14:20: [facility] accepted the pt. Booked [facility]. Start of care date with [facility] is 12/25/24. Original Note: start of care date with [facility] is 12/25/24.
== END 2024-12-22 15:15 | disposition home health service (06) | DRG 552 ==
LOC: SERX 15:54 → SERHOLD 17:45 → S2NX 19:51
PROVIDERS: Admitting Provider Student in an Organized Health Care Education/Training Program; Emergency Provider Emergency Medicine; Visit Provider Student in an Organized Health Care Education/Training Program
DX: M50.10 Cervical disc disorder with radiculopathy, unspecified cervical region (principal); I10 Essential (primary) hypertension; R53.1 Weakness; M25.511 Pain in right shoulder; D75.1 Secondary polycythemia; G62.9 Polyneuropathy, unspecified; M25.512 Pain in left shoulder; R00.1 Bradycardia, unspecified; I25.10 Atherosclerotic heart disease of native coronary artery without angina pectoris; I95.1 Orthostatic hypotension; E86.0 Dehydration; M48.02 Spinal stenosis, cervical region; Z79.82 Long term (current) use of aspirin; Z95.5 Presence of coronary angioplasty implant and graft; Z79.899 Other long term (current) drug therapy
CPT/HCPCS: 36415; 70450; 70496; 70498; 70544; 72156; 80053; 80061; 83036; 83735; 84100; 84443; 84484; 85025; 85610; 85730; 87040; 92610; 93005; 93306; 97162; 99291; A4649; A9579; J1643; J7030; J7120; Q9967; A9270

== ENCOUNTER 2024-12-23 10:10 | Outpatient (AMB) | payer MEDICARE, MEDICAID, SELFPAY ==
[2024-12-23 10:18] VITALS: BP 122/71; PULSE 64; RESP 18; TEMP 36.8; O2SAT 94; BMI 28.6
--- NOTE | 2024-12-23 10:18 | ACNOTE_ITS ---
Vital Signs 12/23/24 10:18 Height 1.55 m Height Method Measured Weight 68.719 kg Weight Measurement Method Standing Scale BMI 28.6 BP 122/71 Blood Pressure Source Automatic Cuff Blood Pressure Location Right Upper Arm Position Sitting Respiration 18 Pulse 64 Pulse Source Monitor Temp 98.2 F Temp Source Temporal Artery Scan Pulse Oximetry (%) 94 L Oxygen Delivery Method Room Air Allergies/Meds Allergies & Medications Allergies No Known Allergies Allergy (Verified 12/23/24 10:19) Medication Reconciliation aspirin 81 mg capsule 81 mg PO QDAY 30 days #30 caps 12/22/24 [Rx Confirmed ] docusate calcium 240 mg capsule 240 mg PO BID PRN constipation #14 caps 12/23/24 [Rx] polyethylene glycol 3350 17 gram/dose oral powder (Miralax) 4 g PO QDAY PRN constipation #238 grams 12/23/24 [Rx] MA Intake Visit Data Collection New Patient or Established: Established Patient (seen at [facility] within 3 years) Seen by Clinical Staff ONLY (RN/MA): No Pain Present Currently: No Pain scale:: 0 Pain Scale Used: Lange-Marmolejo/Numerical Sub Arc Operator Required: No PCP or OBGYN visit in last 3 months: No Hx Now: No Do You Feel Safe at Home: Yes Authorities Contacted: N/A Smoking Status Smoking Status: Never smoker Immunization / Flu Flu Vaccine in the Last 12 Months: No Flu Vaccine Exclusion Criteria: No Exclusion Criteria Past Medical History Past Medical History CARDIAC: Positive Hypercholesterolemia and Hypertension; Negative Congestive Heart Failure RESPIRATORY: Negative Chronic Obstructive Pulmonary Disease (COPD) GENITOURINARY: Negative Renal Disease ENDOCRINE: Negative Diabetes Mellitus Type 1 or Diabetes Mellitus Type 2 Surgical History SURGICAL: Positive Cardiac Surgery Social History SMOKING STATUS: Smoking status: Never smoker ALCOHOL: Alcohol Intake: Never HOUSING: Housing: House LIVES WITH: Lives With: Family Patient Portal Cornelio Social History Living Situation History Housing: House Housing Other:: Patient resides at home with his son. Tobacco History Smoking Status: Never smoker Alcohol History Alcohol Intake: Never Domestic Abuse History Do You Feel Safe at Home: Yes Review of Systems Report any current symptoms Only answer those that you have currently: Past Medical History Past Medical History Have you ever been diagnosed with any of the following: Cardiology Problems Hypercholesterolemia: Yes Congestive Heart Failure: No Hypertension: Yes Respiratory Problems Chronic Obstructive Pulmonary Disease (COPD): No Genital/Urinary Problems Renal Disease: No Endocrine Problems Diabetes Mellitus Type 1: No Diabetes Mellitus Type 2: No History of Present Illness HPI Narrative HPI:A 79-year-old male patient with reported past medical history of coronary artery disease status post stent placement 5 years ago in [place], hypertension, was admitted to the hospital on 19 December 2004 after he noticed bilateral upper limbs weakness. Patient was admitted for CVA rule out. Brain MRI and MRI were negative for any acute infarct. However, cervical MRI showed advanced degenerative disc disease involving C3-C4, C4-C5 associated with neural foraminal stenosis. Neurology team was consulted in which they recommended that the patient can be discharged and follow-up outpatient. They recommended EMG and nerve conduction study in outpatient settings. During his stay patient was noticed to have asymptomatic bradycardia, and also was noticed to have orthostatic hypotension. EKG showed heart rate of 53 first-degree heart block with WV interval of 214, QTc of 400, with no ischemic changes. Echocardiogram with bubble study showed diastolic dysfunction with mild MR and mild AI. The hospitalist team recommended the patient to stop blood pressure medications that was prescribed to him from [place] and just to continue on aspirin at this time. On questioning patient reported that he has been constipated since Sunday associated with mild abdominal distention. Patient denied any previous constipation episodes. Denied any history of blood per rectum and denied any history of weight loss. Home medications:Aspirin PMH:Reportedly ACS, questionable HTN PSX:Stent placement 5 years ago Allergies:NKDA Objective/Exam Narrative Physical exam: GEN: AOx3, [place] speaker able to speak full sentences HEENT: NC/AC, PERRLA, oral mucosa moist, neck supple CVS: RRR, S1-S2 present, no murmurs appreciated RESP: CTAB GI: soft,Mildly distended, non tender, NBS MSK: able to move all 4 limbs, mild generalized weakness, no lower extremity edema SKIN: warm and dry STAFF DEVELOPMENT MANAGER: CN II-XII and Sensation grossly intact. Assessment & Plan Diagnosis / Problem List (1) Bradycardia: Status: Resolved Assessment & Plan: During his stay patient was noticed to have asymptomatic bradycardia, and also was noticed to have orthostatic hypotension. EKG showed heart rate of 53 first- degree heart block with WV interval of 214, QTc of 400, with no ischemic changes. Echocardiogram with bubble study showed diastolic dysfunction with mild MR and mild AI. Plan: - Referral to toy designer follow-up within 1 week (2) Hypotension: Status: Resolved Qualifiers: Hypotension type: hypotension due to drug Qualified Code(s): I95.2 - Hypotension due to drugs Assessment & Plan: On admission patient was having orthostatic hypotension, patient was found antihypertension medications from [place] which were held by the hospitalist team. Today's blood pressure is normal at 122/71 with no medications, denied any orthostatic dizziness or loss of balance. Plan: - Follow-up with the toy designer as above ? Continue to check your blood pressure at home at least 2 times a day and keep a record for the next visit next week. (3) Cervical stenosis of spine: Status: Acute Assessment & Plan: Patient presented to the ED due to bilateral upper extremity weakness, stroke was ruled out. However, cervical MRI showed degenerative changes with cervical stenosis. In-house neurologist Dr Lugo was consulted she recommended to follow-up in outpatient settings to perform EMG studies. Plan: ? Follow-up with a neurologist Dr Lugo within 1 week from discharge for EMG, referral was sent (4) Constipation: Status: Acute Qualifiers: Constipation type: unspecified constipation type Qualified Code(s): K59.00 - Constipation, unspecified Assessment & Plan: Patient reported that he has not had any bowel movement since admission. Last bowel movement was on Sunday. Patient denied any previous history of chronic constipation or weight loss. On examination there is mild abdominal distention. He reported that he can pass gas. No history of previous surgeries. Patient denied any history of colonoscopy in the past. Plan: ? MiraLAX twice daily as needed as needed for constipation ? Docusate as needed for constipation ? Consider referring the patient for GI specialist for routine colonoscopy screening. Orders: Referrals Cardiology I95.9 - Hypotension, unspecified, R00.1 - Bradycardia, unspecified Neurology G62.9 - Polyneuropathy, unspecified, M54.12 - Radiculopathy, cervical region Additional Assessment Internal Medicine Attending Note: Case discussed with and agree with note and management plan of Resident Physician as per Resident's Note above. Issues of concern for present visit are as follows: New patient to clinic. Past medical history coronary disease status [place]. Recent hospital admission for bilateral upper arm weakness. Imaging negative for any acute infarct. Cervical MRI showed advanced degenerative disc disease involving C3-C4, C4-C5 associated with neuroforaminal stenosis. Neurology evaluation recommended outpatient EMG and nerve conduction study. Cardiology workup showed first-degree heart block. Echocardiogram with bubble study negative for any shunt but showed diastolic dysfunction with mild MR and mild AI. Patient is continued only on aspirin. On exam today, blood pressure 122/71, pulse 64, patient afebrile. We will have follow-up with cardiology for first-degree heart block, referral to be made today. Patient will be referred to neurology for EMG/NCT to assess impact of cervical stenosis. MiraLAX given for constipation. Consider colonoscopy for routine screening. Other health maintenance issues reviewed. Desmond Amado MD Advanced Care Planning Advance care planning discussed with:: patient, spouse and child Physician Billing New Patient New Patient: E/M Level 3-CPT 90182 Office Procedures [facility] Level of Care Nursing/Assessment Patient Status: Established Patient Nursing Assessment/Reassessment: Medication Reconciliation, Update PMH in EMR and Vital Signs Coordination of Care: Complex Care and Chronic Disease 1-5, Consent,records obtained, informed consent, Education Simp Pt/Fam and Staff clarify orders Special Needs: Language special needs Established Patient Charge Established Patient Point Assignment: 85 Established Patient Point Charge: EP Level 3 (80-115)
== END 2024-12-23 11:20 | disposition home or self-care (01) ==
PROVIDERS: Supervising Provider Internal Medicine; Visit Provider Student in an Organized Health Care Education/Training Program
DX: M50.321 Other cervical disc degeneration at C4-C5 level (principal); M48.02 Spinal stenosis, cervical region; K59.00 Constipation, unspecified; I44.0 Atrioventricular block, first degree; Z79.82 Long term (current) use of aspirin
CPT/HCPCS: 99213; G0463